=== PATIENT | male | born 1985 | race Caucasian/White ===

== ENCOUNTER 2017-08-17 13:01 | Emergency (ER) | payer BC, OTHER ==
[~2017-08-17] VITALS: Ht 177.8 cm; Wt 93.2 kg
[~2017-08-17 13:01] MED LIST: ESCI10TA
[2017-08-17 13:04] VITALS: Ht 177.8 cm; Wt 93.2 kg
[2017-08-17] MEDS ORDERED: LIDOCAINE 1%/EPI 30 ML INJ INJ STA (13:24)
--- NOTE | 2017-08-17 14:58 | RADRPT ---
PROCEDURE: XR Cervical Spine. CLINICAL INDICATION: Neck pain TECHNIQUE: AP, lateral, and open-mouth odontoid views of the cervical spine were performed. The im ages were reviewed on a PACS workstation. Suboptimal lateral view due to arm restraints in place. COMPARISON: None. FINDINGS: The cervical spine is aligned without evidence of fractures or subluxations. Vertebral body and dis k heights appear within normal limits. No acute fractures or subluxations. Odontoid base and latera l masses are aligned. The prevertebral soft tissues are normal. No radiopaque foreign bodies are id entified. Suboptimal lateral view is seen only to the top of the C4 level. IMPRESSION: 1. Unremarkable cervical spine x-rays series. RPTAT: KK .oJhn Almanza MD, Date Time Electronically viewed and signed by .John Almanza MD, on 08/17/2017 14:57 .L/
[2017-08-17] MEDS ORDERED: IBUPROFEN 800 MG TAB PO ONE (15:00)
[2017-08-17 15:16] VITALS: BP 135/95; PULSE 66; RESP 20
--- NOTE | 2017-08-17 15:26 | ERD ---
ER Documentation Chief Complaint Chief Complaint [id number], laceration left hand, in custody, need to book HPI 31-year-old male complaining of laceration to left medial palm 1 day. 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 Per patient he states that he was standing on the curb and tripped and fell on hard surface causing laceration to his palm. Patient is right-hand dominant. Patient has not taken medications. Patient is currently in custody. Patient has not cleaned the site or done any care to the wound. ROS All systems reviewed and are negative except as per history of present illness. Medications Home Meds Discontinued Reported Medications Escitalopram Oxalate* (Lexapro*) 10 Mg Tablet 05/19/10 Allergies Allergies: Coded Allergies: No Known Allergy (Unverified , 08/17/17) PMhx/Soc History of Surgery: Yes (lt ACL repair, colon mass removed) Anesthesia Reaction: No Hx Neurological Disorder: No Hx Respiratory Disorders: No Hx Cardiac Disorders: No Hx Psychiatric Problems: Yes (bipolar disorder, depression) Hx Miscellaneous Medical Probl: No Hx Alcohol Use: Yes Hx Substance Use: No Hx Tobacco Use: No Physical Exam Vitals Vital Signs Date Time Temp Pulse Resp B/P Pulse Ox O2 Delivery O2 Flow Rate FiO2 08/17/17 15:16 66 20 135/95 98 Room Air 08/17/17 13:04 98.9 78 20 145/100 98 Physical Exam GENERAL: The patient is well-appearing, well-nourished, in no acute distress CHEST: Clear to auscultation bilaterally. There are no rales, wheezes or rhonchi. HEART: Regular rate and rhythm. No murmurs, clicks, rubs or gallops. No S3 or S4. EXTREMITIES: Equal pulses bilaterally. There is no peripheral clubbing, cyanosis or edema. No focal swelling or erythema. Full range of motion. Grossly neurovascularly intact. NEUROLOGIC: Motor strength in all 4 extremities with 5 out of 5 strength. Sensation grossly intact. SKIN: 2cm linear laceration to the left medial palm. No tendon or ligament injuries. No active bleeding. No foreign bodies. Results 24 hrs Current Medications Medications (Trade) Dose Ordered Sig/Marco Antonio Route PRN Reason Start Time Stop Time Status Last Admin Dose Admin Lidocaine/ Epinephrine (Xylocaine 1%/ Epi (Pf)) 30 ml ONCE STAT INJ 10/19/17 13:24 08/17/17 13:26 DC Ibuprofen (Motrin) 800 mg ONCE ONCE PO 08/17/17 15:00 08/17/17 15:01 DC 08/17/17 15:12 Procedures/MDM Laceration Repair by me: Anesthesia: 1% lidocaine locally Location: left hand 2cm Tendon/Joint/Nerves: No injury Foreign body: None detected after copious irrigation and exploration Technique: 5.0 5N Simple Interrupted Sutures Complexity: No subcutaneous sutures/mucosal repair/ edge excision Post Closure Length: 2 cm Patient's bleeding was easily controlled in the department and there is no indication of anemia. No evidence of compartment syndrome, neurologic injury, vascular injury, open joint, tendon laceration, or foreign body. Patient is appropriate for outpatient follow up. 48 hour wound check. Scar minimization instructions given. DIAGNOSTIC IMAGING REPORT Patient: JOSSY JOHNS : 1985 Age: 31 Sex: M MR #: [id number] DOS: 08/17/17 1356 Ordering MD: SHANELLE STANTON PA-C Location: E/R Room/Bed: PROCEDURE: XR Cervical Spine. CLINICAL INDICATION: Neck pain TECHNIQUE: AP, lateral, and open-mouth odontoid views of the cervical spine were performed. The images were reviewed on a PACS workstation. Suboptimal lateral view due to arm restraints in place. COMPARISON: None. FINDINGS: The cervical spine is aligned without evidence of fractures or subluxations. Vertebral body and disk heights appear within normal limits. No acute fractures or subluxations. Odontoid base and lateral masses are aligned. The prevertebral soft tissues are normal. No radiopaque foreign bodies are identified. Suboptimal lateral view is seen only to the top of the C4 level. IMPRESSION: 1. Unremarkable cervical spine x-rays series. MDM: 31-year-old male complaining of laceration to left medial palm. A low suspicion for tendon or ligament injuries. I have low suspicion for neurovascular deficits. Patient's exam is non-concerning. Patient's x-ray of the neck is within normal limits. I have low suspicion for acute fracture dislocation. A low suspicion for neurodeficit or intracranial hemorrhage or mass-effect. Patient's exam is non-concerning. A low suspicion for other orthopedic injury as patient's exams are within normal limits. Patient is cleared to be booked. Patient is told if symptoms change or worsen to return the ER however patient is being taken to halfway. Departure Diagnosis: Primary Impression: Laceration Condition: Stable Patient Instructions: Laceration, Hand Referrals: [facility] YOU HAVE RECEIVED A MEDICAL SCREENING EXAM AND THE RESULTS INDICATE THAT YOU DO NOT HAVE A CONDITION THAT REQUIRES URGENT TREATMENT IN THE EMERGENCY DEPARTMENT. FURTHER EVALUATION AND TREATMENT OF YOUR CONDITION CAN WAIT UNTIL YOU ARE SEEN IN YOUR DOCTORS OFFICE WITHIN THE NEXT 1-2 DAYS. IT IS YOUR RESPONSIBILITY TO MAKE AN APPOINTMENT FOR FOLOW-UP CARE. IF YOU HAVE A PRIMARY DOCTOR --you should call your primary doctor and schedule an appointment IF YOU DO NOT HAVE A PRIMARY DOCTOR YOU CAN CALL OUR PHYSICIAN REFERRAL HOTLINE AT IF YOU CAN NOT AFFORD TO SEE A PHYSICIAN YOU CAN CHOSE FROM THE FOLLOWING [facility] [address] [facility]. [facility] [address] [facility] [facility] [address] [facility] [place]. [facility] [address] [facility] [facility] [address] [facility]. [facility]. [address] Additional Instructions: OK TO BOOK Sutures remove in 7 days RUTHANN STANTON PA-C Aug 17, 2017 15:26
== END 2017-08-17 15:17 | disposition home or self-care (01) ==
LOC: E/R 13:01
DX: S61.412A Laceration without foreign body of left hand, initial encounter (principal); W26.0XXA Contact with knife, initial encounter; Y92.9 Unspecified place or not applicable
CPT/HCPCS: 72040